=== PATIENT | female | born 1980 | race American Indian/Alaskan Native ===

== ENCOUNTER 2016-10-22 11:43 | Emergency (ER) | payer MEDICAID ==
[2016-10-22 13:08] VITALS: BP 110/67
== END 2016-10-22 21:50 | disposition left against medical advice (07) ==
LOC: ED 11:43
DX: R10.10 Upper abdominal pain, unspecified (principal); Z53.21 Procedure and treatment not carried out due to patient leaving prior to being seen by health care provider

== ENCOUNTER 2017-12-03 12:20 | Emergency (ER) | payer MEDICAID ==
--- NOTE | 2017-12-03 15:04 | Emergency Department Report ---
Chief Complaint: Upper Respiratory Infection Stated Complaint: FLU SYMPTOMS - HPI History of Present Illness: 37 year-old female presents with one-week history of frontal headache, sinus congestion, chest pains and body aches, cough and some generalized weakness. No recent travel or sick contacts at home. She denies past medical history. Used NyQuil and [place] cold and flu. - ROS Review of Systems: Patient is positive for body aches, cough, congestions, headache. She is negative for fever, SOB, vomiting, diarrhea. - Exam Vital Signs: Vital Signs 12/03/17 12:24 Temperature 98.1 F Pulse Rate 60 Respiratory 16 Rate Blood Pressure 111/73 O2 Sat by Pulse 98 Oximetry Physical Exam: Patient is awake and alert in no acute distress. MSE screening note: Focused history and physical exam performed. Due to findings the following was ordered: I will order a 2 view chest x-ray secondary to her cough. She will be seen by a mid-level provider here on the fast track side. ED Disposition for MSE Condition: Stable
--- NOTE | 2017-12-03 15:34 | XRay Report ---
ROUTINE CHEST, TWO VIEWS: HISTORY: Cough. The trachea, heart, mediastinal contour, lung sosa and bony thorax are unremarkable. IMPRESSION: Unremarkable chest x-ray.
--- NOTE | 2017-12-03 15:41 | Emergency Department Report ---
- General Chief Complaint: Upper Respiratory Infection Stated Complaint: FLU SYMPTOMS Time Seen by Provider: 12/03/17 15:06 Source: patient Mode of arrival: Ambulatory Limitations: No Limitations - History of Present Illness Initial Comments: 37-year-old female presents with complaint of URI type symptoms sinus congestion and cough for 1 week. Patient is awake alert and oriented 3 not in acute distress. Using NyQuil and [place] at home for symptoms with minimal relief. MD Complaint: cough, sore throat, rhinorrhea, nasal congestion Onset/Timin -: week(s) Severity: moderate Consistency: constant Context: sick contacts Associated Symptoms: cough Treatments Prior to Arrival: none - Related Data Previous Rx's Medication Instructions Recorded Last Taken Type Nitrofurantoin [place]/M-Cryst 100 mg PO Q12HR #14 capsule 05/03/14 Unknown Rx [Macrobid] Cyclobenzaprine [Flexeril 10mg] 10 mg PO TID PRN #30 tablet 06/24/14 Unknown Rx Acetaminophen/Codeine [Tylenol 1 tab PO Q6H PRN #30 tab 08/13/14 Unknown Rx /Codeine # 3 tab] Ibuprofen [Motrin 800 MG tab] 800 mg PO Q8H #30 tablet 08/13/14 Unknown Rx Promethazine [Phenergan] 25 mg PO Q6H PRN #25 tablet 08/13/14 Unknown Rx Amoxicillin/K Clav Tab [Augmentin 1 tab PO Q12HR #20 tab 10/19/15 Unknown Rx 875 mg] Fluticasone [Flonase] 2 spray NS QDAY #1 bottle 10/19/15 Unknown Rx Loratadine [Claritin] 10 mg PO DAILY #30 tablet 10/19/15 Unknown Rx Promethazine /Codeine 5 ml PO Q6H PRN #150 ml 10/19/15 Unknown Rx [Phenergan/Codeine 6.25-10 mg/5 ml] methylPREDNISolone [Medrol Dose 4 mg PO DAILY 6 Days tab 10/19/15 Unknown Rx Santos] ALBUTEROL Inhaler [ProAir HFA 1 puff IH Q4H PRN #1 inha 12/03/17 Unknown Rx Inhaler] Amoxicillin/Potassium Clav 1 each PO BID #20 tablet 12/03/17 Unknown Rx [Augmentin 875-125 Tablet] Fluticasone [Flonase] 1 spray NS QDAY PRN #1 bottle 12/03/17 Unknown Rx Ibuprofen [Motrin] 800 mg PO Q8HR PRN #30 tablet 12/03/17 Unknown Rx Loratadine [Claritin] 10 mg PO DAILY PRN #14 tablet 12/03/17 Unknown Rx Allergies Allergy/AdvReac Type Severity Reaction Status Date / Time No Known Allergies Allergy Verified 05/03/14 13:40 ED Review of Systems ROS: Stated complaint: FLU SYMPTOMS Other details as noted in HPI Constitutional: denies: chills, fever Eyes: denies: eye pain, eye discharge, vision change ENT: congestion. denies: ear pain, throat pain Respiratory: denies: cough, shortness of breath, wheezing Cardiovascular: denies: chest pain, palpitations Endocrine: no symptoms reported Gastrointestinal: denies: abdominal pain, nausea, diarrhea Genitourinary: denies: urgency, dysuria, discharge Musculoskeletal: denies: back pain, joint swelling, arthralgia Skin: denies: rash, lesions Neurological: denies: headache, weakness, paresthesias Psychiatric: denies: anxiety, depression Hematological/Lymphatic: denies: easy bleeding, easy bruising ED Past Medical Hx - Past Medical History Previous Medical History?: Yes Hx Headaches / Migraines: Yes Additional medical history: Migrain H/A - Surgical History Past Surgical History?: No - Social History Smoking Status: Never Smoker Substance Use Type: None - Medications Home Medications: Home Medications Medication Instructions Recorded Confirmed Last Taken Type Nitrofurantoin [place]/M-Cryst 100 mg PO Q12HR #14 capsule 05/03/14 Unknown Rx [Macrobid] Cyclobenzaprine [Flexeril 10mg] 10 mg PO TID PRN #30 tablet 06/24/14 Unknown Rx Acetaminophen/Codeine [Tylenol 1 tab PO Q6H PRN #30 tab 08/13/14 Unknown Rx /Codeine # 3 tab] Ibuprofen [Motrin 800 MG tab] 800 mg PO Q8H #30 tablet 08/13/14 Unknown Rx Promethazine [Phenergan] 25 mg PO Q6H PRN #25 tablet 08/13/14 Unknown Rx Amoxicillin/K Clav Tab [Augmentin 1 tab PO Q12HR #20 tab 10/19/15 Unknown Rx 875 mg] Fluticasone [Flonase] 2 spray NS QDAY #1 bottle 10/19/15 Unknown Rx Loratadine [Claritin] 10 mg PO DAILY #30 tablet 10/19/15 Unknown Rx Promethazine /Codeine 5 ml PO Q6H PRN #150 ml 10/19/15 Unknown Rx [Phenergan/Codeine 6.25-10 mg/5 ml] methylPREDNISolone [Medrol Dose 4 mg PO DAILY 6 Days tab 10/19/15 Unknown Rx Santos] ALBUTEROL Inhaler [ProAir HFA 1 puff IH Q4H PRN #1 inha 12/03/17 Unknown Rx Inhaler] Amoxicillin/Potassium Clav 1 each PO BID #20 tablet 12/03/17 Unknown Rx [Augmentin 875-125 Tablet] Fluticasone [Flonase] 1 spray NS QDAY PRN #1 bottle 12/03/17 Unknown Rx Ibuprofen [Motrin] 800 mg PO Q8HR PRN #30 tablet 12/03/17 Unknown Rx Loratadine [Claritin] 10 mg PO DAILY PRN #14 tablet 12/03/17 Unknown Rx ED Physical Exam - General Limitations: No Limitations General appearance: alert, in no apparent distress - Head Head exam: Present: atraumatic, normocephalic - Eye Eye exam: Present: normal appearance, PERRL, EOMI - ENT ENT exam: Present: normal exam, normal orophraynx, mucous membranes moist - Neck Neck exam: Present: normal inspection - Respiratory Respiratory exam: Present: normal lung sounds bilaterally. Absent: respiratory distress - Cardiovascular Cardiovascular Exam: Present: regular rate, normal rhythm. Absent: systolic murmur, diastolic murmur, rubs, gallop - GI/Abdominal GI/Abdominal exam: Present: soft, normal bowel sounds - Extremities Exam Extremities exam: Present: normal inspection - Back Exam Back exam: Present: normal inspection - Neurological Exam Neurological exam: Present: alert, oriented X3 - Psychiatric Psychiatric exam: Present: normal affect, normal mood - Skin Skin exam: Present: warm, dry, intact, normal color. Absent: rash ED Course Vital Signs 12/03/17 12/03/17 12:24 16:04 Temperature 98.1 F 98.8 F Pulse Rate 60 57 L Respiratory 16 18 Rate Blood Pressure 111/73 Blood Pressure 108/78 [Right] O2 Sat by Pulse 98 100 Oximetry ED Medical Decision Making - Medical Decision Making A/P: Sinusitis 1-Flonase, Claritin, Motrin, Augmentin, albuterol 2-follow-up with primary care doctor 3-chest x-ray unremarkable 4- follow-up with primary care doctor Critical care attestation.: If time is entered above; I have spent that time in minutes in the direct care of this critically ill patient, excluding procedure time. ED Disposition Clinical Impression: Sinusitis Qualifiers: Sinusitis location: frontal Chronicity: acute Recurrence: non-recurrent Qualified Code(s): J01.10 - Acute frontal sinusitis, unspecified Upper respiratory infection Qualifiers: URI type: unspecified URI Qualified Code(s): J06.9 - Acute upper respiratory infection, unspecified Disposition: - TO HOME OR SELFCARE Is pt being admited?: No Does the pt Need Aspirin: No Condition: Stable Instructions: Sinusitis (ED), Upper Respiratory Infection (ED) Prescriptions: ALBUTEROL Inhaler [ProAir HFA Inhaler] 1 puff IH Q4H PRN #1 inha PRN Reason: Wheezing Amoxicillin/Potassium Clav [Augmentin 875-125 Tablet] 1 each PO BID #20 tablet Fluticasone [Flonase] 1 spray NS QDAY PRN #1 bottle PRN Reason: Congestion Ibuprofen [Motrin] 800 mg PO Q8HR PRN #30 tablet PRN Reason: Pain Loratadine [Claritin] 10 mg PO DAILY PRN #14 tablet PRN Reason: Congestion Referrals: [facility] [Outside] - 3-5 Days [facility] [Outside] - 3-5 Days Forms: Work/School Release Form(ED) Time of Disposition: 15:43
[2017-12-03 16:05] VITALS: BP 108/78
== END 2017-12-03 16:05 | disposition home or self-care (01) ==
LOC: ED 12:20
DX: J01.10 Acute frontal sinusitis, unspecified (principal); G43.909 Migraine, unspecified, not intractable, without status migrainosus
CPT/HCPCS: 71046

== ENCOUNTER 2018-01-03 13:51 | Emergency (ER) | payer MEDICAID ==
[2018-01-03 14:59] LABS: Bacteria,Urine 2+ /HPF (Negative); Bilirubin,Urine NEG (Negative); Blood,Urine MOD (Negative); Color,Urine Yellow (Yellow); HCG Qualitative,Urine Negative (Negative); Mucus,Urine FEW /HPF; Protein,Urine <15 mg/dL mg/dL (Negative); Urobilinogen,Urine < 2.0 mg/dL (<2.0)
--- NOTE | 2018-01-03 16:33 | Emergency Department Report ---
ED Female HPI - General Chief complaint: Urogenital-Female Stated complaint: PAINFUL URINATION Time Seen by Provider: 01/03/18 16:18 Source: patient Mode of arrival: Ambulatory Limitations: No Limitations - History of Present Illness Initial comments: 37-year-old female past medical history migraine headaches presents with complaint of one day of dysuria with slight hematuria and increased urinary frequency and urge. Patient denies nausea vomiting fever or chills. Last menstrual period 12/27/17. Denies any vaginal discharge at this time. Primarily complaining of dysuria. Some suprapubic discomfort with urination. MD Complaint: vaginal discharge, dysuria Onset/Timin -: days(s) Location: suprapubic Radiation: suprapubic Severity: moderate Quality: burning Consistency: intermittent Worsens with: urination Are you Now?: No Associated Symptoms: dysuria - Related Data Sexually active: Yes Previous Rx's Medication Instructions Recorded Last Taken Type Nitrofurantoin [place]/M-Cryst 100 mg PO Q12HR #14 capsule 05/03/14 Unknown Rx [Macrobid] Cyclobenzaprine [Flexeril 10mg] 10 mg PO TID PRN #30 tablet 06/24/14 Unknown Rx Acetaminophen/Codeine [Tylenol 1 tab PO Q6H PRN #30 tab 08/13/14 Unknown Rx /Codeine # 3 tab] Ibuprofen [Motrin 800 MG tab] 800 mg PO Q8H #30 tablet 08/13/14 Unknown Rx Promethazine [Phenergan] 25 mg PO Q6H PRN #25 tablet 08/13/14 Unknown Rx Amoxicillin/K Clav Tab [Augmentin 1 tab PO Q12HR #20 tab 10/19/15 Unknown Rx 875 mg] Fluticasone [Flonase] 2 spray NS QDAY #1 bottle 10/19/15 Unknown Rx Loratadine [Claritin] 10 mg PO DAILY #30 tablet 10/19/15 Unknown Rx Promethazine /Codeine 5 ml PO Q6H PRN #150 ml 10/19/15 Unknown Rx [Phenergan/Codeine 6.25-10 mg/5 ml] methylPREDNISolone [Medrol Dose 4 mg PO DAILY 6 Days tab 10/19/15 Unknown Rx Santos] ALBUTEROL Inhaler [ProAir HFA 1 puff IH Q4H PRN #1 inha 12/03/17 Unknown Rx Inhaler] Amoxicillin/Potassium Clav 1 each PO BID #20 tablet 12/03/17 Unknown Rx [Augmentin 875-125 Tablet] Fluticasone [Flonase] 1 spray NS QDAY PRN #1 bottle 12/03/17 Unknown Rx Ibuprofen [Motrin] 800 mg PO Q8HR PRN #30 tablet 12/03/17 Unknown Rx Loratadine [Claritin] 10 mg PO DAILY PRN #14 tablet 12/03/17 Unknown Rx Phenazopyridine [Pyridium] 100 mg PO TID #6 tab 01/03/18 Unknown Rx Sulfamethoxazole/Trimethoprim 1 each PO BID #6 tablet 01/03/18 Unknown Rx [Bactrim DS TAB] Allergies Allergy/AdvReac Type Severity Reaction Status Date / Time No Known Allergies Allergy Verified 01/03/18 14:27 ED Review of Systems ROS: Stated complaint: PAINFUL URINATION Other details as noted in HPI Constitutional: denies: chills, fever Eyes: denies: eye pain, eye discharge, vision change ENT: denies: ear pain, throat pain Respiratory: denies: cough, shortness of breath, wheezing Cardiovascular: denies: chest pain, palpitations Endocrine: no symptoms reported Gastrointestinal: denies: abdominal pain, nausea, diarrhea Genitourinary: dysuria. denies: urgency, discharge Musculoskeletal: denies: back pain, joint swelling, arthralgia Skin: denies: rash, lesions Neurological: denies: headache, weakness, paresthesias Psychiatric: denies: anxiety, depression Hematological/Lymphatic: denies: easy bleeding, easy bruising ED Past Medical Hx - Past Medical History Previous Medical History?: Yes Hx Headaches / Migraines: Yes Additional medical history: Migrain H/A - Surgical History Past Surgical History?: No - Social History Smoking Status: Never Smoker - Medications Home Medications: Home Medications Medication Instructions Recorded Confirmed Last Taken Type Nitrofurantoin [place]/M-Cryst 100 mg PO Q12HR #14 capsule 05/03/14 Unknown Rx [Macrobid] Cyclobenzaprine [Flexeril 10mg] 10 mg PO TID PRN #30 tablet 06/24/14 Unknown Rx Acetaminophen/Codeine [Tylenol 1 tab PO Q6H PRN #30 tab 08/13/14 Unknown Rx /Codeine # 3 tab] Ibuprofen [Motrin 800 MG tab] 800 mg PO Q8H #30 tablet 08/13/14 Unknown Rx Promethazine [Phenergan] 25 mg PO Q6H PRN #25 tablet 08/13/14 Unknown Rx Amoxicillin/K Clav Tab [Augmentin 1 tab PO Q12HR #20 tab 10/19/15 Unknown Rx 875 mg] Fluticasone [Flonase] 2 spray NS QDAY #1 bottle 10/19/15 Unknown Rx Loratadine [Claritin] 10 mg PO DAILY #30 tablet 10/19/15 Unknown Rx Promethazine /Codeine 5 ml PO Q6H PRN #150 ml 10/19/15 Unknown Rx [Phenergan/Codeine 6.25-10 mg/5 ml] methylPREDNISolone [Medrol Dose 4 mg PO DAILY 6 Days tab 10/19/15 Unknown Rx Santos] ALBUTEROL Inhaler [ProAir HFA 1 puff IH Q4H PRN #1 inha 12/03/17 Unknown Rx Inhaler] Amoxicillin/Potassium Clav 1 each PO BID #20 tablet 12/03/17 Unknown Rx [Augmentin 875-125 Tablet] Fluticasone [Flonase] 1 spray NS QDAY PRN #1 bottle 12/03/17 Unknown Rx Ibuprofen [Motrin] 800 mg PO Q8HR PRN #30 tablet 12/03/17 Unknown Rx Loratadine [Claritin] 10 mg PO DAILY PRN #14 tablet 12/03/17 Unknown Rx Phenazopyridine [Pyridium] 100 mg PO TID #6 tab 01/03/18 Unknown Rx Sulfamethoxazole/Trimethoprim 1 each PO BID #6 tablet 01/03/18 Unknown Rx [Bactrim DS TAB] ED Physical Exam - General Limitations: No Limitations General appearance: alert, in no apparent distress - Head Head exam: Present: atraumatic, normocephalic - Eye Eye exam: Present: normal appearance, PERRL, EOMI Pupils: Present: normal accommodation - ENT ENT exam: Present: mucous membranes moist - Neck Neck exam: Present: normal inspection - Respiratory Respiratory exam: Present: normal lung sounds bilaterally. Absent: respiratory distress - Cardiovascular Cardiovascular Exam: Present: regular rate, normal rhythm. Absent: systolic murmur, diastolic murmur, rubs, gallop - GI/Abdominal GI/Abdominal exam: Present: soft, normal bowel sounds - External exam: Present: normal external exam Speculum exam: Present: normal speculum exam Bi-manual exam: Present: normal bi-manual exam - Extremities Exam Extremities exam: Present: normal inspection - Back Exam Back exam: Present: normal inspection - Neurological Exam Neurological exam: Present: alert, oriented X3, CN II-XII intact, normal gait - Psychiatric Psychiatric exam: Present: normal affect, normal mood - Skin Skin exam: Present: warm, dry, intact, normal color. Absent: rash ED Course Vital Signs 01/03/18 14:25 Temperature 98.8 F Pulse Rate 58 L Respiratory 18 Rate Blood Pressure 102/66 O2 Sat by Pulse 99 Oximetry ED Medical Decision Making - Medical Decision Making A/P: Dysuria, UTI 1-wet prep unremarkable, GC cultures sent, urinalysis indicative of moderate leukocyte esterase with white blood cells. In context the patient's symptoms will treat empirically 2-Bactrim DS twice a day 3 day course [email or web address] [email or web address] 3-advised patient to return to the ED for any fevers chills nausea vomiting worsened pain increased hematuria or lack of response to treatment after 3 days 4-Pyridium prn Critical care attestation.: If time is entered above; I have spent that time in minutes in the direct care of this critically ill patient, excluding procedure time. ED Disposition Clinical Impression: Dysuria Urinary tract infection Qualifiers: Urinary tract infection type: acute cystitis Hematuria presence: with hematuria Qualified Code(s): N30.01 - Acute cystitis with hematuria Disposition: TO HOME OR SELFCARE Is pt being admited?: No Does the pt Need Aspirin: No Condition: Stable Instructions: Dysuria (ED), Urinary Tract Infection in Women (ED) Prescriptions: Phenazopyridine [Pyridium] 100 mg PO TID #6 tab Sulfamethoxazole/Trimethoprim [Bactrim DS TAB] 1 each PO BID #6 tablet Referrals: [facility] [Provider Group] - 3-5 Days [facility] [Provider Group] - 3-5 Days Forms: Accompanied Note, Work/School Release Form(ED) Time of Disposition: 16:51
[2018-01-03 17:58] VITALS: BP 101/73
== END 2018-01-03 17:30 | disposition home or self-care (01) ==
LOC: ED 13:51
DX: N39.0 Urinary tract infection, site not specified (principal)
CPT/HCPCS: 81001; 81025; 87076; 87086; 87186; 87210; 87591; 99283

== ENCOUNTER 2019-10-15 06:46 | Emergency (ER) | payer SELFPAY ==
--- NOTE | 2019-10-15 15:33 | Emergency Department Report ---
<LASHAY HAMPTON - Last Filed: 10/15/19 16:48> ED General Adult HPI - General Chief complaint: Upper Respiratory Infection Stated complaint: FLU SYMPTOMS Time Seen by Provider: 10/15/19 14:59 Source: patient Mode of arrival: Ambulatory Limitations: No Limitations - History of Present Illness Initial comments: 39-year-old -[place]ian female patient presents with complaints of body aches, cough, congestion, sneezing, wheezing, and sore throat 2 days. She states her symptoms were sudden in onset. She denies any fever, na usea/vomiting/diarrhea, chest pain, or shortness of breath. She states the cough is productive of yellow sputum. Denies any hemoptysis. Patient states Mucinex is not helping. Improves with: none - Related Data Previous Rx's Medication Instructions Recorded Last Taken Type Nitrofurantoin [place]/M-Cryst 100 mg PO Q12HR #14 capsule 05/03/14 Unknown Rx [Macrobid] Cyclobenzaprine [Flexeril 10mg] 10 mg PO TID PRN #30 tablet 06/24/14 Unknown Rx Acetaminophen/Codeine [Tylenol 1 tab PO Q6H PRN #30 tab 08/13/14 Unknown Rx /Codeine # 3 tab] Ibuprofen [Motrin 800 MG tab] 800 mg PO Q8H #30 tablet 08/13/14 Unknown Rx Promethazine [Phenergan] 25 mg PO Q6H PRN #25 tablet 08/13/14 Unknown Rx Amoxicillin/K Clav Tab [Augmentin 1 tab PO Q12HR #20 tab 10/19/15 Unknown Rx 875 mg] Fluticasone [Flonase] 2 spray NS QDAY #1 bottle 10/19/15 Unknown Rx Loratadine (Nf) [Claritin] 10 mg PO DAILY #30 tablet 10/19/15 Unknown Rx Promethazine /Codeine 5 ml PO Q6H PRN #150 ml 10/19/15 Unknown Rx [Phenergan/Codeine 6.25-10 mg/5 ml] methylPREDNISolone [Medrol Dose 4 mg PO DAILY 6 Days tab 10/19/15 Unknown Rx Santos] Albuterol INH(or & Nicu Only) 1 puff IH Q4H PRN #1 inha 12/03/17 Unknown Rx [ProAir HFA Inhaler] Amoxicillin/Potassium Clav 1 each PO BID #20 tablet 12/03/17 Unknown Rx [Augmentin 875-125 Tablet] Fluticasone [Flonase] 1 spray NS QDAY PRN #1 bottle 12/03/17 Unknown Rx Ibuprofen [Motrin] 800 mg PO Q8HR PRN #30 tablet 12/03/17 Unknown Rx Loratadine (Nf) [Claritin] 10 mg PO DAILY PRN #14 tablet 12/03/17 Unknown Rx Phenazopyridine [Pyridium] 100 mg PO TID #6 tab 01/03/18 Unknown Rx Sulfamethoxazole/Trimethoprim 1 each PO BID #6 tablet 01/03/18 Unknown Rx [Bactrim DS TAB] Benzonatate 200 mg PO TID PRN #30 capsule 10/15/19 Unknown Rx Ibuprofen [Motrin 600 MG tab] 600 mg PO TID PRN #21 tab 10/15/19 Unknown Rx Oseltamivir [Tamiflu] 75 mg PO BID 5 Days #10 cap 10/15/19 Unknown Rx Allergies Allergy/AdvReac Type Severity Reaction Status Date / Time No Known Allergies Allergy Verified 01/03/18 14:27 ED Review of Systems Constitutional: chills, malaise, weakness. denies: diaphoresis, fever Eyes: denies: vision change Respiratory: cough. denies: shortness of breath Cardiovascular: denies: chest pain Gastrointestinal: denies: abdominal pain, nausea, vomiting, diarrhea Genitourinary: denies: dysuria Musculoskeletal: denies: back pain, joint swelling, arthralgia Skin: denies: rash, lesions Neurological: denies: headache, weakness, paresthesias ED Past Medical Hx - Past Medical History Previous Medical History?: Yes Hx Headaches / Migraines: Yes Additional medical history: Migrain H/A - Surgical History Past Surgical History?: No - Social History Smoking Status: Never Smoker Substance Use Type: None - Medications Home Medications: Home Medications Medication Instructions Recorded Confirmed Last Taken Type Nitrofurantoin [place]/M-Cryst 100 mg PO Q12HR #14 capsule 05/03/14 Unknown Rx [Macrobid] Cyclobenzaprine [Flexeril 10mg] 10 mg PO TID PRN #30 tablet 06/24/14 Unknown Rx Acetaminophen/Codeine [Tylenol 1 tab PO Q6H PRN #30 tab 08/13/14 Unknown Rx /Codeine # 3 tab] Ibuprofen [Motrin 800 MG tab] 800 mg PO Q8H #30 tablet 08/13/14 Unknown Rx Promethazine [Phenergan] 25 mg PO Q6H PRN #25 tablet 08/13/14 Unknown Rx Amoxicillin/K Clav Tab [Augmentin 1 tab PO Q12HR #20 tab 10/19/15 Unknown Rx 875 mg] Fluticasone [Flonase] 2 spray NS QDAY #1 bottle 10/19/15 Unknown Rx Loratadine (Nf) [Claritin] 10 mg PO DAILY #30 tablet 10/19/15 Unknown Rx Promethazine /Codeine 5 ml PO Q6H PRN #150 ml 10/19/15 Unknown Rx [Phenergan/Codeine 6.25-10 mg/5 ml] methylPREDNISolone [Medrol Dose 4 mg PO DAILY 6 Days tab 10/19/15 Unknown Rx Santos] Albuterol INH(or & Nicu Only) 1 puff IH Q4H PRN #1 inha 12/03/17 Unknown Rx [ProAir HFA Inhaler] Amoxicillin/Potassium Clav 1 each PO BID #20 tablet 12/03/17 Unknown Rx [Augmentin 875-125 Tablet] Fluticasone [Flonase] 1 spray NS QDAY PRN #1 bottle 12/03/17 Unknown Rx Ibuprofen [Motrin] 800 mg PO Q8HR PRN #30 tablet 12/03/17 Unknown Rx Loratadine (Nf) [Claritin] 10 mg PO DAILY PRN #14 tablet 12/03/17 Unknown Rx Phenazopyridine [Pyridium] 100 mg PO TID #6 tab 01/03/18 Unknown Rx Sulfamethoxazole/Trimethoprim 1 each PO BID #6 tablet 01/03/18 Unknown Rx [Bactrim DS TAB] Benzonatate 200 mg PO TID PRN #30 capsule 10/15/19 Unknown Rx Ibuprofen [Motrin 600 MG tab] 600 mg PO TID PRN #21 tab 10/15/19 Unknown Rx Oseltamivir [Tamiflu] 75 mg PO BID 5 Days #10 cap 10/15/19 Unknown Rx ED Physical Exam - General Limitations: No Limitations General appearance: alert, in no apparent distress - Head Head exam: Present: atraumatic, normocephalic - Eye Eye exam: Present: normal appearance - ENT ENT exam: Present: normal orophraynx, mucous membranes moist - Neck Neck exam: Present: normal inspection. Absent: tenderness, lymphadenopathy - Respiratory Respiratory exam: Present: rhonchi (LLL, mild). Absent: respiratory distress, wheezes, rales, stridor, accessory muscle use - Cardiovascular Cardiovascular Exam: Present: regular rate, normal rhythm. Absent: systolic murmur, diastolic murmur, rubs, gallop - Back Exam Back exam: Present: normal inspection - Neurological Exam Neurological exam: Present: alert, oriented X3 - Psychiatric Psychiatric exam: Present: normal affect, normal mood - Skin Skin exam: Present: warm, dry, intact, normal color. Absent: rash ED Medical Decision Making - Radiology Data Radiology results: report reviewed CHEST 2 VIEWS INDICATION: cough, abnormal breath sounds in lower lungs. COMPARISON: None. FINDINGS: Support devices: None. Heart: Within normal limits. Lungs/Pleura: No acute air space or interstitial disease. No significant pleural effusion. IMPRESSION: No acute findings. - Medical Decision Making 39-year-old -[place]ian female patient presents with complaints of body aches, cough, congestion, sneezing, wheezing, and sore throat 2 days. Vitals are normal. Chest x-ray is negative for pneumonia or other acute finding. Patient likely has a viral syndrome or flu. Patient is stable for discharge home with tamiflu and medications for symptomatic treatment. Patient encouraged to continue Mucinex. Recommend follow-up with primary care provider and 3-5 days. Discussed strict return precautions in great detail with patient verbalizes understanding. ED Disposition Clinical Impression: Flu syndrome Disposition: DC-01 TO HOME OR SELFCARE Is pt being admited?: No Condition: Undetermined Instructions: Influenza (ED) Prescriptions: Benzonatate 200 mg PO TID PRN #30 capsule PRN Reason: Cough Ibuprofen [Motrin 600 MG tab] 600 mg PO TID PRN #21 tab PRN Reason: pain/fever Oseltamivir [Tamiflu] 75 mg PO BID 5 Days #10 cap Referrals: PRIMARY CARE,MD [Primary Care Provider] - 3-5 Days Forms: Work/School Release Form(ED) <MAT SEGOVIA - Last Filed: 10/15/19 18:03> ED Review of Systems ROS: Stated complaint: FLU SYMPTOMS Other details as noted in HPI ED Course Vital Signs 10/15/19 10/15/19 07:15 16:18 Temperature 98.1 F Pulse Rate 75 82 Respiratory 18 18 Rate Blood Pressure 139/86 Blood Pressure 113/80 [Right] O2 Sat by Pulse 95 100 Oximetry ED Medical Decision Making - Medical Decision Making Attestation: Available for consultation Critical care attestation.: If time is entered above; I have spent that time in minutes in the direct care of this critically ill patient, excluding procedure time. ED Disposition Is pt being admited?: No
--- NOTE | 2019-10-15 16:03 | XRay Report ---
CHEST 2 VIEWS INDICATION: cough, abnormal breath sounds in lower lungs. COMPARISON: None. FINDINGS: Support devices: None. Heart: Within normal limits. Lungs/Pleura: No acute air space or interstitial disease. No significant pleural effusion. IMPRESSION: No acute findings. Signer Name: Jacobo Suarez MD Signed: 10/15/2019 3:58 PM Workstation Name: [id number]
[2019-10-15 16:19] VITALS: BP 113/80
== END 2019-10-15 17:09 | disposition home or self-care (01) ==
LOC: ED 06:46
DX: J11.1 Influenza due to unidentified influenza virus with other respiratory manifestations (principal); G43.909 Migraine, unspecified, not intractable, without status migrainosus
CPT/HCPCS: 71046; 99283